=== PATIENT | male | born 1985 | race African-American/Black ===

== ENCOUNTER → 2017-11-04 | Outpatient (CLI) | payer BC ==
[~2017-11-04] MED LIST: ALLEGRA ALLERGY60 MG PO; IBUPROFEN 800800 M1 PO; NORCO 5-325 TA1 EAC1 PO; NORCO 5-325 TA1 EACH PO; PREDNISONE 10 M10 M1 PO; ZOFRAN ODT4 MG PO
== END ==
LOC: M.ULTRA 08:56
DX: N62 Hypertrophy of breast (principal); N60.82 Other benign mammary dysplasias of left breast

== ENCOUNTER 2021-02-11 04:36 | Emergency (ER) | payer BC ==
[~2021-02-11] VITALS: Ht 180.3 cm; Wt 90.7 kg
[2021-02-11] MEDS ORDERED: CILOXAN5 ML EA. EYE ×2 (05:28)
[2021-02-11 05:36] VITALS: BP 133/94
== END 2021-02-11 05:37 | disposition home or self-care (01) ==
LOC: M.ERS 04:36
DX: S05.02XA Injury of conjunctiva and corneal abrasion without foreign body, left eye, initial encounter (principal); S05.01XA Injury of conjunctiva and corneal abrasion without foreign body, right eye, initial encounter; F17.210 Nicotine dependence, cigarettes, uncomplicated; Z91.041 Radiographic dye allergy status; X58.XXXA Exposure to other specified factors, initial encounter; Y93.89 Activity, other specified; Y92.89 Other specified places as the place of occurrence of the external cause; Y99.8 Other external cause status

== ENCOUNTER 2021-04-15 09:46 | Emergency (ER) | payer BC ==
[~2021-04-15] VITALS: Ht 180.3 cm; Wt 104.3 kg
[~2021-04-15 09:46] MED LIST changes: +CILOXAN5 ML EA. EYE
[2021-04-15 11:11] VITALS: BP 123/81
== END 2021-04-15 11:12 | disposition home or self-care (01) ==
LOC: M.ERS 09:46
DX: Z20.822 Contact with and (suspected) exposure to COVID-19 (principal); Z91.041 Radiographic dye allergy status; F17.210 Nicotine dependence, cigarettes, uncomplicated